=== PATIENT | male | born 1940 | race Caucasian/White ===

== ENCOUNTER 2020-01-18 23:51 | Inpatient (IN) | payer MEDICARE ==
[~2020-01-18] VITALS: Ht 182.9 cm; Wt 115.7 kg
[~2020-01-18 23:51] MED LIST: ASPI81TA45 PO; ATOR40TA78 PO; CEFD300C37 PO; INSU100I13 SQ-INSULIN; METR500T PO
[2020-01-19] MEDS ORDERED: SODIUM CHLORIDE FLUSH 10ML SYR IVF ONE (00:30)
[2020-01-19] MEDS ORDERED: VANCOMYCIN PER PHARMACY MC ONE (00:30)
[2020-01-19] MEDS ORDERED: AMPICILLIN/SULBACTAM 3 GM in SODIUM CHLORIDE 0.9% 100 ML IV ONE (00:30)
[2020-01-19] MEDS ORDERED: SODIUM CHLORIDE 0.9% 1,000ML IVBOLUS ONE (00:30)
[2020-01-19 00:33] LABS: BASOPHILS # (AUTO) 0.05 x10^3/uL (0-0.1); BASOPHILS % (AUTO) 1 % (0-1); EOSINOPHILS # (AUTO) 0.08 x10^3/uL (0-0.4); EOSINOPHILS % (AUTO) 1 % (1-7); HCT (SEDRATE) 47.6 % (39.2-51.8); LYMPHOCYTES # (AUTO) 1.44 x10^3/uL (1-3.4); LYMPHOCYTES % (AUTO) 18 % (22-44); MD NO; MEAN CORPUSCULAR HEMOGLOBIN 30.3 pg (27.5-34.5); MEAN CORPUSCULAR HGB CONC 33.4 g/dL (33.2-36.2); MEAN CORPUSCULAR VOLUME 90.8 fL (81-97); MEAN PLATELET VOLUME 7.6 fL (7.4-10.4); MONOCYTES # (AUTO) 0.56 x10^3/uL (0.2-0.8); MONOCYTES % (AUTO) 7 % (2-9); NEUTROPHILS # (AUTO) 5.91 x10^3/uL (1.8-6.8); NEUTROPHILS % (AUTO) 74 % (42-75); PLATELET COUNT 248 x10^3/uL (130-400); RED BLOOD COUNT 5.21 x10^6/uL (4.38-5.82); RED CELL DISTRIBUTION WIDTH 14.8 % (9.4-14.8)
[2020-01-19 00:46] LABS: ALANINE AMINOTRANSFERASE 14 U/L (12-78); ALBUMIN 2.4 g/dL (3.4-5.0); ANION GAP 9 mmol/L (5-15); CALCIUM 8.4 mg/dL (8.5-10.1); CHLORIDE 101 mmol/L (98-107); CREATININE 1.31 mg/dL (0.7-1.3)
[2020-01-19 00:51] LABS: ALKALINE PHOSPHATASE 95 U/L (45-117); BILIRUBIN,TOTAL 0.9 mg/dL (0.2-1.0); TOTAL PROTEIN 7.3 g/dL (6.4-8.2); TROPONIN I 0.015 ng/mL (0.000-0.045)
[2020-01-19] MEDS ORDERED: VANCOMYCIN 2,000 MG in SODIUM CHLORIDE 0.9% 500 ML IV ONE (01:00)
[2020-01-19] MEDS ORDERED: PHARMACOKINETIC CONSULTATION MC ONE (01:00)
[2020-01-19] MEDS ORDERED: THIAMINE 100MG TABLET ONE (01:23)
--- NOTE | 2020-01-19 01:29 | NUR ---
PT CAME FROM HOME AND RFD RAN ON HIM 3 TIMES IN THE DAY FOR FALLS. BELIA SAID 3 TIME PT AGREED TO BE SEEN AT ER
[2020-01-19] MEDS ORDERED: THIAMINE 100MG TABLET PO ONE (01:30)
--- NOTE | 2020-01-19 01:30 | NUR ---
PT RESTING IN BED, PT SAID HE WAS COLD AND WAS PROVIDED A EXTRA 2 WARM BLANKETS FOR PT COMFORT.
--- NOTE | 2020-01-19 01:52 | NUR ---
BREAK RN: VS UPDATED. IVF AND IV ABX INFUSING PER MAR. PT. DENIES ANY PAIN AT THIS TIME. DENIES NEEDS. ALL MONITORS IN PLACE. CALL LIGHT IN REACH. ALL SAFETY MEASURES OBSERVED. PT. ONLY C/O BEING COLD. TEMP CHECKED(97.8 ORAL). CLAIR PAW WARMER IN USE NOW FOR PT. COMFORT.
[2020-01-19 04:00] VITALS: BP 118/71
[2020-01-19] MEDS ORDERED: hydrALAzine 20 MG/ML, 1ML IVPush PRN (05:00)
[2020-01-19] MEDS ORDERED: PHARMACY MAY ADJ FOR RENAL FX MC PRN ×2 (05:00→13:00)
[2020-01-19] MEDS ORDERED: VANCOMYCIN PER PHARMACY MC PRN (05:00)
[2020-01-19] MEDS ORDERED: GABAPENTIN 300 MG CAPSULE PO PRN (05:00)
[2020-01-19] MEDS ORDERED: ACETAMINOPHEN 325 MG TABLET PO PRN (05:00)
[2020-01-19] MEDS ORDERED: PHARMACOKINETIC MONITORING MC PRN (05:30)
[2020-01-19] MEDS: AMPICILLIN/SULBACTAM 3 GM in SODIUM CHLORIDE 0.9% 100 ML IV SCH ×2 (06:44→11:32)
[2020-01-19] MEDS: INSULIN GLARGINE 100 UNITS/ML, PEN SQ-INSULIN SCH ×2 (09:06→21:52)
[2020-01-19] MEDS: INSULIN LISPRO 100 UNITS/ML, PEN SQ-INSULIN SCH ×4 (09:07→21:52)
[2020-01-19] MEDS: ASPIRIN 81 MG TABLET EC PO SCH (09:07)
[2020-01-19] MEDS ORDERED: GADOTERATE 10 MMOL/20 ML SYR ONE (09:43)
[2020-01-19 12:23] VITALS: BP 121/72
[2020-01-19] MEDS: MEROPENEM 1 GM in SODIUM CHLORIDE 0.9% 100 ML IV SCH ×2 (14:57→22:29)
[2020-01-19 15:05] LABS: MICROSCOPIC INDICATED
[2020-01-19 19:03] VITALS: BP 119/73
[2020-01-19] MEDS: ATORVASTATIN 40 MG TABLET PO SCH (21:51)
[2020-01-19] MEDS: DAKIN'S SOLUTION 1/4 STRENGTH 1,000 ML IRRIG SOLN EXT SCH (21:52)
[2020-01-20 00:22] VITALS: BP 152/77
[2020-01-20] MEDS: MEROPENEM 1 GM in SODIUM CHLORIDE 0.9% 100 ML IV SCH ×3 (05:52→23:55)
[2020-01-20 06:04] LABS: ANION GAP 8 mmol/L (5-15); CALCIUM 8.4 mg/dL (8.5-10.1); CHLORIDE 108 mmol/L (98-107); CREATININE 0.81 mg/dL (0.7-1.3)
[2020-01-20 06:30] VITALS: BP 152/84
[2020-01-20] MEDS: ASPIRIN 81 MG TABLET EC PO SCH (07:59)
[2020-01-20] MEDS: INSULIN LISPRO 100 UNITS/ML, PEN SQ-INSULIN SCH ×4 (08:00→20:16)
[2020-01-20] MEDS: INSULIN GLARGINE 100 UNITS/ML, PEN SQ-INSULIN SCH ×2 (08:00→20:20)
[2020-01-20] MEDS: DAKIN'S SOLUTION 1/4 STRENGTH 1,000 ML IRRIG SOLN EXT SCH ×2 (08:02→20:21)
[2020-01-20 08:52] LABS: BASOPHILS # (AUTO) 0.05 x10^3/uL (0-0.1); BASOPHILS % (AUTO) 1 % (0-1); EOSINOPHILS # (AUTO) 0.21 x10^3/uL (0-0.4); EOSINOPHILS % (AUTO) 3 % (1-7); LYMPHOCYTES # (AUTO) 1.84 x10^3/uL (1-3.4); LYMPHOCYTES % (AUTO) 26 % (22-44); MD NO; MEAN CORPUSCULAR HEMOGLOBIN 29.7 pg (27.5-34.5); MEAN CORPUSCULAR HGB CONC 32.2 g/dL (33.2-36.2); MEAN CORPUSCULAR VOLUME 92.2 fL (81-97); MEAN PLATELET VOLUME 7.7 fL (7.4-10.4); MONOCYTES # (AUTO) 0.63 x10^3/uL (0.2-0.8); MONOCYTES % (AUTO) 9 % (2-9); NEUTROPHILS # (AUTO) 4.46 x10^3/uL (1.8-6.8); NEUTROPHILS % (AUTO) 62 % (42-75); PLATELET COUNT 207 x10^3/uL (130-400); RED BLOOD COUNT 4.94 x10^6/uL (4.38-5.82); RED CELL DISTRIBUTION WIDTH 14.8 % (9.4-14.8)
[2020-01-20] MEDS: VANCOMYCIN 1,800 MG in SODIUM CHLORIDE 0.9% 250 ML IV SCH (13:26)
[2020-01-20 13:40] VITALS: BP 117/76
[2020-01-20 19:01] VITALS: BP 120/65
[2020-01-20] MEDS: ATORVASTATIN 40 MG TABLET PO SCH (20:20)
[2020-01-21 00:34] VITALS: BP 150/80
[2020-01-21 05:27] LABS: BASOPHILS # (AUTO) 0.07 x10^3/uL (0-0.1); BASOPHILS % (AUTO) 1 % (0-1); EOSINOPHILS # (AUTO) 0.28 x10^3/uL (0-0.4); EOSINOPHILS % (AUTO) 4 % (1-7); LYMPHOCYTES # (AUTO) 1.66 x10^3/uL (1-3.4); LYMPHOCYTES % (AUTO) 24 % (22-44); MD NO; MEAN CORPUSCULAR HEMOGLOBIN 30.1 pg (27.5-34.5); MEAN CORPUSCULAR HGB CONC 33.1 g/dL (33.2-36.2); MEAN CORPUSCULAR VOLUME 90.9 fL (81-97); MEAN PLATELET VOLUME 7.2 fL (7.4-10.4); MONOCYTES # (AUTO) 0.74 x10^3/uL (0.2-0.8); MONOCYTES % (AUTO) 11 % (2-9); NEUTROPHILS # (AUTO) 4.07 x10^3/uL (1.8-6.8); NEUTROPHILS % (AUTO) 60 % (42-75); PLATELET COUNT 200 x10^3/uL (130-400); RED BLOOD COUNT 4.53 x10^6/uL (4.38-5.82); RED CELL DISTRIBUTION WIDTH 14.8 % (9.4-14.8)
[2020-01-21 05:34] LABS: ANION GAP 4 mmol/L (5-15); CALCIUM 8.4 mg/dL (8.5-10.1); CHLORIDE 106 mmol/L (98-107); CREATININE 0.92 mg/dL (0.7-1.3)
[2020-01-21] MEDS: INSULIN LISPRO 100 UNITS/ML, PEN SQ-INSULIN SCH ×4 (07:00→21:00)
[2020-01-21 07:38] VITALS: BP 153/83
[2020-01-21] MEDS: INSULIN GLARGINE 100 UNITS/ML, PEN SQ-INSULIN SCH ×2 (08:05→21:08)
[2020-01-21] MEDS: MEROPENEM 1 GM in SODIUM CHLORIDE 0.9% 100 ML IV SCH ×3 (08:05→23:45)
[2020-01-21] MEDS: ASPIRIN 81 MG TABLET EC PO SCH (08:05)
[2020-01-21] MEDS: DAKIN'S SOLUTION 1/4 STRENGTH 1,000 ML IRRIG SOLN EXT SCH ×2 (08:15→21:15)
[2020-01-21 13:40] VITALS: BP 122/70
[2020-01-21 20:58] VITALS: BP 124/77
[2020-01-21] MEDS: ATORVASTATIN 40 MG TABLET PO SCH (21:06)
[2020-01-22 00:47] VITALS: BP 170/93
[2020-01-22] MEDS: VANCOMYCIN 1,800 MG in SODIUM CHLORIDE 0.9% 250 ML IV SCH (01:29)
[2020-01-22] MEDS: INSULIN LISPRO 100 UNITS/ML, PEN SQ-INSULIN SCH ×4 (06:08→21:32)
[2020-01-22 07:59] LABS: ALANINE AMINOTRANSFERASE 8 U/L (12-78); ALBUMIN 1.8 g/dL (3.4-5.0); ANION GAP 7 mmol/L (5-15); CALCIUM 7.8 mg/dL (8.5-10.1); CHLORIDE 103 mmol/L (98-107)
[2020-01-22 08:00] VITALS: BP 114/72
[2020-01-22 08:02] LABS: ALKALINE PHOSPHATASE 77 U/L (45-117); BILIRUBIN,TOTAL 0.7 mg/dL (0.2-1.0); CREATININE 0.75 mg/dL (0.7-1.3); TOTAL PROTEIN 5.9 g/dL (6.4-8.2)
[2020-01-22] MEDS: MEROPENEM 1 GM in SODIUM CHLORIDE 0.9% 100 ML IV SCH ×2 (08:09→16:24)
[2020-01-22] MEDS: ASPIRIN 81 MG TABLET EC PO SCH (08:09)
[2020-01-22] MEDS: INSULIN GLARGINE 100 UNITS/ML, PEN SQ-INSULIN SCH ×2 (08:10→21:32)
[2020-01-22] MEDS: DAKIN'S SOLUTION 1/4 STRENGTH 1,000 ML IRRIG SOLN EXT SCH ×2 (09:00→21:24)
[2020-01-22 12:46] VITALS: BP 120/73
[2020-01-22] MEDS: ATORVASTATIN 40 MG TABLET PO SCH (21:23)
[2020-01-22] MEDS: FLUCONAZOLE 200 MG/100 ML 100 ML IV SCH (21:23)
[2020-01-22 21:44] VITALS: BP 122/75
[2020-01-23] MEDS: VANCOMYCIN 1,800 MG in SODIUM CHLORIDE 0.9% 250 ML IV SCH (00:51)
[2020-01-23 02:42] VITALS: BP 129/73
[2020-01-23] MEDS: MEROPENEM 1 GM in SODIUM CHLORIDE 0.9% 100 ML IV SCH ×3 (02:57→18:08)
[2020-01-23 04:32] LABS: BASOPHILS # (AUTO) 0.05 x10^3/uL (0-0.1); BASOPHILS % (AUTO) 1 % (0-1); EOSINOPHILS # (AUTO) 0.33 x10^3/uL (0-0.4); EOSINOPHILS % (AUTO) 4 % (1-7); LYMPHOCYTES # (AUTO) 2.11 x10^3/uL (1-3.4); LYMPHOCYTES % (AUTO) 28 % (22-44); MD NO; MEAN CORPUSCULAR HEMOGLOBIN 29.6 pg (27.5-34.5); MEAN CORPUSCULAR HGB CONC 32.7 g/dL (33.2-36.2); MEAN CORPUSCULAR VOLUME 90.6 fL (81-97); MEAN PLATELET VOLUME 7.3 fL (7.4-10.4); MONOCYTES # (AUTO) 0.81 x10^3/uL (0.2-0.8); MONOCYTES % (AUTO) 11 % (2-9); NEUTROPHILS # (AUTO) 4.19 x10^3/uL (1.8-6.8); NEUTROPHILS % (AUTO) 56 % (42-75); PLATELET COUNT 206 x10^3/uL (130-400); RED BLOOD COUNT 4.81 x10^6/uL (4.38-5.82); RED CELL DISTRIBUTION WIDTH 14.4 % (9.4-14.8)
[2020-01-23 04:43] LABS: ANION GAP 4 mmol/L (5-15); CALCIUM 8.5 mg/dL (8.5-10.1); CHLORIDE 103 mmol/L (98-107); CREATININE 0.82 mg/dL (0.7-1.3)
[2020-01-23] MEDS: INSULIN LISPRO 100 UNITS/ML, PEN SQ-INSULIN SCH ×4 (06:18→22:56)
[2020-01-23 09:28] VITALS: BP 138/66
[2020-01-23] MEDS: DAKIN'S SOLUTION 1/4 STRENGTH 1,000 ML IRRIG SOLN EXT SCH ×2 (10:00→22:52)
[2020-01-23] MEDS: INSULIN GLARGINE 100 UNITS/ML, PEN SQ-INSULIN SCH ×2 (10:10→22:56)
[2020-01-23] MEDS: ASPIRIN 81 MG TABLET EC PO SCH (11:59)
[2020-01-23 13:46] VITALS: BP 109/63
[2020-01-23 20:42] VITALS: BP 117/72
[2020-01-23] MEDS: FLUCONAZOLE 200 MG/100 ML 100 ML IV SCH (22:49)
[2020-01-23] MEDS: ATORVASTATIN 40 MG TABLET PO SCH (22:51)
[2020-01-24 00:09] VITALS: BP 111/74
[2020-01-24] MEDS: VANCOMYCIN 1,800 MG in SODIUM CHLORIDE 0.9% 250 ML IV SCH (00:49)
[2020-01-24] MEDS: MEROPENEM 1 GM in SODIUM CHLORIDE 0.9% 100 ML IV SCH ×3 (02:25→18:08)
[2020-01-24 07:12] VITALS: BP 154/89
[2020-01-24] MEDS: INSULIN GLARGINE 100 UNITS/ML, PEN SQ-INSULIN SCH ×2 (07:57→23:29)
[2020-01-24] MEDS: ASPIRIN 81 MG TABLET EC PO SCH (07:58)
[2020-01-24] MEDS: INSULIN LISPRO 100 UNITS/ML, PEN SQ-INSULIN SCH ×4 (07:58→23:31)
[2020-01-24] MEDS: DAKIN'S SOLUTION 1/4 STRENGTH 1,000 ML IRRIG SOLN EXT SCH ×2 (08:57→23:18)
[2020-01-24 14:04] VITALS: BP 115/71
[2020-01-24 19:32] VITALS: BP 98/62
[2020-01-24] MEDS: ATORVASTATIN 40 MG TABLET PO SCH (23:09)
[2020-01-24] MEDS: FLUCONAZOLE 200 MG/100 ML 100 ML IV SCH (23:17)
[2020-01-25 00:58] VITALS: BP 145/78
[2020-01-25 01:20] LABS: BASOPHILS # (AUTO) 0.05 x10^3/uL (0-0.1); BASOPHILS % (AUTO) 1 % (0-1); EOSINOPHILS # (AUTO) 0.24 x10^3/uL (0-0.4); EOSINOPHILS % (AUTO) 4 % (1-7); LYMPHOCYTES # (AUTO) 2.18 x10^3/uL (1-3.4); LYMPHOCYTES % (AUTO) 32 % (22-44); MD NO; MEAN CORPUSCULAR HEMOGLOBIN 30.1 pg (27.5-34.5); MEAN CORPUSCULAR HGB CONC 33.1 g/dL (33.2-36.2); MEAN CORPUSCULAR VOLUME 90.8 fL (81-97); MEAN PLATELET VOLUME 7.8 fL (7.4-10.4); MONOCYTES # (AUTO) 0.79 x10^3/uL (0.2-0.8); MONOCYTES % (AUTO) 12 % (2-9); NEUTROPHILS # (AUTO) 3.46 x10^3/uL (1.8-6.8); NEUTROPHILS % (AUTO) 52 % (42-75); PLATELET COUNT 179 x10^3/uL (130-400); RED BLOOD COUNT 4.51 x10^6/uL (4.38-5.82); RED CELL DISTRIBUTION WIDTH 14.4 % (9.4-14.8)
[2020-01-25 01:33] LABS: CALCIUM 8.4 mg/dL (8.5-10.1); CHLORIDE 105 mmol/L (98-107); CREATININE 0.63 mg/dL (0.7-1.3)
[2020-01-25] MEDS: VANCOMYCIN 1,800 MG in SODIUM CHLORIDE 0.9% 250 ML IV SCH (01:45)
[2020-01-25] MEDS: MEROPENEM 1 GM in SODIUM CHLORIDE 0.9% 100 ML IV SCH ×3 (03:54→19:45)
[2020-01-25 03:57] LABS: ANION GAP 10 mmol/L (5-15)
[2020-01-25] MEDS: INSULIN LISPRO 100 UNITS/ML, PEN SQ-INSULIN SCH ×4 (07:47→22:12)
[2020-01-25 07:51] VITALS: BP 113/59
[2020-01-25] MEDS: DAKIN'S SOLUTION 1/4 STRENGTH 1,000 ML IRRIG SOLN EXT SCH ×2 (09:07→23:32)
[2020-01-25] MEDS: ASPIRIN 81 MG TABLET EC PO SCH (09:07)
[2020-01-25] MEDS: INSULIN GLARGINE 100 UNITS/ML, PEN SQ-INSULIN SCH ×2 (09:10→22:13)
[2020-01-25 13:57] VITALS: BP 105/53
[2020-01-25 19:19] VITALS: BP 125/78
[2020-01-25] MEDS: ATORVASTATIN 40 MG TABLET PO SCH (22:12)
[2020-01-25] MEDS: FLUCONAZOLE 200 MG/100 ML 100 ML IV SCH (23:32)
[2020-01-26 01:31] VITALS: BP 132/83
[2020-01-26] MEDS: VANCOMYCIN 1,800 MG in SODIUM CHLORIDE 0.9% 250 ML IV SCH (02:11)
[2020-01-26] MEDS: MEROPENEM 1 GM in SODIUM CHLORIDE 0.9% 100 ML IV SCH ×2 (04:15→11:30)
[2020-01-26 05:35] LABS: BASOPHILS # (AUTO) 0.04 x10^3/uL (0-0.1); BASOPHILS % (AUTO) 1 % (0-1); EOSINOPHILS # (AUTO) 0.24 x10^3/uL (0-0.4); EOSINOPHILS % (AUTO) 4 % (1-7); LYMPHOCYTES # (AUTO) 1.91 x10^3/uL (1-3.4); LYMPHOCYTES % (AUTO) 31 % (22-44); MD NO; MEAN CORPUSCULAR HEMOGLOBIN 30.1 pg (27.5-34.5); MEAN CORPUSCULAR HGB CONC 33.4 g/dL (33.2-36.2); MEAN PLATELET VOLUME 7.4 fL (7.4-10.4); MONOCYTES # (AUTO) 0.72 x10^3/uL (0.2-0.8); MONOCYTES % (AUTO) 12 % (2-9); NEUTROPHILS # (AUTO) 3.35 x10^3/uL (1.8-6.8); NEUTROPHILS % (AUTO) 54 % (42-75); PLATELET COUNT 191 x10^3/uL (130-400); RED BLOOD COUNT 4.38 x10^6/uL (4.38-5.82); RED CELL DISTRIBUTION WIDTH 13.9 % (9.4-14.8)
[2020-01-26 05:41] LABS: ANION GAP 4 mmol/L (5-15); CALCIUM 8.4 mg/dL (8.5-10.1); CHLORIDE 106 mmol/L (98-107); CREATININE 0.49 mg/dL (0.7-1.3)
[2020-01-26] MEDS: INSULIN LISPRO 100 UNITS/ML, PEN SQ-INSULIN SCH ×2 (07:00→11:50)
[2020-01-26 07:21] VITALS: BP 101/65
[2020-01-26] MEDS: INSULIN GLARGINE 100 UNITS/ML, PEN SQ-INSULIN SCH (08:51)
[2020-01-26] MEDS: ASPIRIN 81 MG TABLET EC PO SCH (08:51)
[2020-01-26] MEDS: DAKIN'S SOLUTION 1/4 STRENGTH 1,000 ML IRRIG SOLN EXT SCH (08:52)
[2020-01-26] MEDS ORDERED: GABA300C PO (10:18)
[2020-01-26] MEDS ORDERED: AMOX1TAB64 PO (10:18)
[2020-01-26 13:27] VITALS: BP 138/69
== END 2020-01-26 13:55 | disposition home health service (06) | DRG 638 ==
LOC: ED 01-19 02:20 → EDIP 01-19 02:35 → 4NE 01-19 03:28
PROVIDERS: ADMIT Family Medicine; ATTEND Internal Medicine
DX: E11.69 Type 2 diabetes mellitus with other specified complication (principal); M86.172 Other acute osteomyelitis, left ankle and foot; E44.0 Moderate protein-calorie malnutrition; L03.116 Cellulitis of left lower limb; R78.81 Bacteremia; N39.0 Urinary tract infection, site not specified; N17.0 Acute kidney failure with tubular necrosis; E11.621 Type 2 diabetes mellitus with foot ulcer; E11.21 Type 2 diabetes mellitus with diabetic nephropathy; E11.628 Type 2 diabetes mellitus with other skin complications; E11.51 Type 2 diabetes mellitus with diabetic peripheral angiopathy without gangrene; E78.5 Hyperlipidemia, unspecified; F03.90 Unspecified dementia, unspecified severity, without behavioral disturbance, psychotic disturbance, mood disturbance, and anxiety; L97.529 Non-pressure chronic ulcer of other part of left foot with unspecified severity; R62.7 Adult failure to thrive; Z51.5 Encounter for palliative care; Z66 Do not resuscitate; Z91.19 Patient's noncompliance with other medical treatment and regimen; Z68.34 Body mass index [BMI] 34.0-34.9, adult; W18.30XA Fall on same level, unspecified, initial encounter; Y92.009 Unspecified place in unspecified non-institutional (private) residence as the place of occurrence of the external cause; B96.89 Other specified bacterial agents as the cause of diseases classified elsewhere
CPT/HCPCS: 36415; 70450; 71045; 72125; 72170; 80048; 80053; 80202; 80307; 81001; 82962; 83036; 83605; 84145; 84484; 85025; 85651; 86140; 87040; 87070; 87086; 87106; 87205; 93005; 93308; 93321; 93325; 96361; 96365; 96375; 99285; G0378; J0295; J2185; J3370; A9575; J1450; J1815; J7030; J7040; J7050